=== PATIENT | female | born 1960 ===

== ENCOUNTER 2020-12-14 20:37 | Emergency (ER) | payer BC ==
[~2020-12-14] VITALS: Ht 160 cm; Wt 68.4 kg
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
[2020-12-14] MEDS ORDERED: ONDANSETRON 2MG/ML, 2ML ONE (21:20)
[2020-12-14] MEDS ORDERED: MORPHINE SULFATE 4 MG/ML, 1ML ONE (21:20)
[2020-12-14] MEDS ORDERED: KETOROLAC 30 MG/1 ML ONE (21:20)
[2020-12-14] MEDS ORDERED: MORPHINE SULFATE 4 MG/ML, 1ML IVPush PRN (21:30)
[2020-12-14] MEDS ORDERED: SODIUM CHLORIDE FLUSH 10ML SYR IVF ONE (21:30)
[2020-12-14] MEDS ORDERED: ONDANSETRON 2MG/ML, 2ML IVPush ONE (21:30)
[2020-12-14] MEDS ORDERED: KETOROLAC 30 MG/1 ML IV ONE (21:30)
--- NOTE | 2020-12-14 21:41 | NUR ---
MEDICATED FOR PAIN X RAY AT BS
[2020-12-14] MEDS ORDERED: BACITRACIN ZINC OINT 500U/GM, 0.9 GM ONE (22:13)
--- NOTE | 2020-12-14 22:15 | NUR ---
SPLINT PLACED BY VINCE
[2020-12-14] MEDS ORDERED: OXYcodone/APAP 5/325MG TABLET ONE (22:58)
[2020-12-14] MEDS ORDERED: OXYcodone/APAP 5/325MG TABLET PO ONE (23:00)
[2020-12-14 23:06] VITALS: BP 140/75
== END 2020-12-14 23:08 | disposition home or self-care (01) ==
LOC: ED 22:39
DX: S52.501A Unspecified fracture of the lower end of right radius, initial encounter for closed fracture (principal); S80.211A Abrasion, right knee, initial encounter; S40.212A Abrasion of left shoulder, initial encounter; R51.9 Headache, unspecified; F17.200 Nicotine dependence, unspecified, uncomplicated; W01.0XXA Fall on same level from slipping, tripping and stumbling without subsequent striking against object, initial encounter; Y93.89 Activity, other specified; Y92.410 Unspecified street and highway as the place of occurrence of the external cause; Y99.8 Other external cause status
CPT/HCPCS: 29125; 73110; 96374; 96375; 99284; J1885; J2270; J2405